=== PATIENT | female | born 1975 | race Caucasian/White ===

== ENCOUNTER 2017-08-03 08:25 | Observation (INO) | payer OTHER ==
[~2017-08-03] VITALS: Ht 162.6 cm; Wt 100.0 kg
[~2017-08-03 08:25] MED LIST: SYNT175T PO
[2017-08-03 08:26] VITALS: BP 147/85; PULSE 99; RESP 18; O2SAT 98
--- NOTE | 2017-08-03 08:34 | PD ---
HPI Chief Complaint: Chest Pain Time Seen by Provider: 08:33 Travel History International Travel<30 days: No Contact w/Intl Traveler<30days: No Traveled to known affect area: No History of Present Illness HPI 42-year-old female came to the emergency room with history of chest pain that has been on and off since yesterday. It has been radiating down her left arm. This morning when she woke up she still had some pain in her left arm but she went to work. On her way to work she started getting the pain again and decided to come to the emergency room. Patient seems very anxious and crying currently. Vital signs are stable. She has never had this kind of pain in the past. No aggravating or relieving factors identified. Patient has hypothyroidism and hyperlipidemia for which she is taking medications. She is adopted and does not know of a family history. No recent long distance travel or prolonged hospitalization or any other form of prolonged immobilization. No history of fever or cough. She is a smoker. [facility] Past Medical History Narrative Medical List of her past medical, surgical, social and family history is reviewed from the nursing note. Hx Anticoagulant Therapy: Yes (ASPIRIN 162 MG DAILY) Cardiovascular Problems: No Chemotherapy: No Cerebrovascular Accident: No Diabetes: No Respiratory: No Immunizations Current: Yes Thyroid Disease: Yes Past Surgical History Oral Surgery: Yes Social History Alcohol Use: No Tobacco Use: Yes Substance Use: No Allergies-Medications (Allergen,Severity, Reaction): Coded Allergies: codeine (Unverified Allergy, Mild, HIVES, 08/03/17) Uncoded Allergies: PPD TEST (Adverse Reaction, Mild, SWELLING OF ARM, 02/16/15) Comments List of her allergies reviewed from the nursing note. Reported Meds & Prescriptions Reported Meds & Active Scripts Active Zithromax Z-Bi (Azithromycin) 250 Mg Dspk 250 Mg PO DIRECTED 500 MG (2 tabs) day 1, then 1 tab days 2-5. Reported Aspirin 81 Mg Chew 162 Mg CHEW ONCE Lovastatin 10 Mg Tab 10 Mg PO DAILY Synthroid (Levothyroxine Sodium) 25 Mcg Tab 25 Mcg PO DAILY Narrative Medication List of her home medications reviewed from the nursing note. Review of Systems Except as stated in HPI: all other systems reviewed are Neg Cardiovascular: Positive: Chest Pain or Discomfort Physical Exam Narrative GENERAL: Awake, alert, obese, anxious, moderate distress SKIN: Focused skin assessment warm/dry. HEAD: Atraumatic. Normocephalic. EYES: Pupils equal and round. No scleral icterus. No injection or drainage. ENT: No nasal bleeding or discharge. Mucous membranes pink and moist. NECK: Trachea midline. No JVD. CARDIOVASCULAR: Regular rate and rhythm. No murmur appreciated. RESPIRATORY: No accessory muscle use. Clear to auscultation. Breath sounds equal bilaterally. GASTROINTESTINAL: Abdomen soft, non-tender, nondistended. Hepatic and splenic margins not palpable. MUSCULOSKELETAL: No obvious deformities. No clubbing. No cyanosis. No edema. NEUROLOGICAL: Awake and alert. No obvious cranial nerve deficits. Motor grossly within normal limits. Normal speech. PSYCHIATRIC: Appropriate mood and affect; insight and judgment normal. Data Data Last Documented VS Orders Orders Electrocardiogram (08/03/17 08:34) Basic Metabolic Panel (Bmp) (08/03/17 08:34) Complete Blood Count With Diff (08/03/17 08:34) Magnesium (Mg) (08/03/17 08:34) Act Partial Throm Time (Ptt) (08/03/17 08:34) Troponin I (08/03/17 08:34) Chest, Single Ap (08/03/17 08:34) Ecg Monitoring (08/03/17 08:34) Bilateral Bp Monitoring (08/03/17 08:34) Iv Access Insert/Monitor (08/03/17 08:34) Oximetry (08/03/17 08:34) Oxygen Administration (08/03/17 08:34) Sodium Chloride 0.9% Flush (Ns Flush) (08/03/17 08:45) Aspirin Chew (Aspirin Chew) (08/03/17 08:45) Nitroglycerin Sl (Nitrostat Sl) (08/03/17 08:45) Admit Order (Ed Use Only) (08/03/17 09:34) Labs Laboratory Tests Test 08/03/17 08:30 White Blood Count 9.5 TH/MM3 Red Blood Count 5.66 MIL/MM3 Hemoglobin 17.3 GM/DL Hematocrit 49.0 % Mean Corpuscular Volume 86.6 FL Mean Corpuscular Hemoglobin 30.6 PG Mean Corpuscular Hemoglobin Concent 35.3 % Red Cell Distribution Width 14.8 % Platelet Count 352 TH/MM3 Mean Platelet Volume 7.6 FL Neutrophils (%) (Auto) 68.0 % Lymphocytes (%) (Auto) 22.0 % Monocytes (%) (Auto) 7.3 % Eosinophils (%) (Auto) 2.1 % Basophils (%) (Auto) 0.6 % Neutrophils # (Auto) 6.5 TH/MM3 Lymphocytes # (Auto) 2.1 TH/MM3 Monocytes # (Auto) 0.7 TH/MM3 Eosinophils # (Auto) 0.2 TH/MM3 Basophils # (Auto) 0.1 TH/MM3 CBC Comment DIFF FINAL Differential Comment Activated Partial Thromboplast Time 25.7 SEC Blood Urea Nitrogen 11 MG/DL Creatinine 0.72 MG/DL Random Glucose 110 MG/DL Calcium Level 9.1 MG/DL Magnesium Level 2.4 MG/DL Sodium Level 141 MEQ/L Potassium Level 4.2 MEQ/L Chloride Level 108 MEQ/L Carbon Dioxide Level 25.5 MEQ/L Anion Gap 8 MEQ/L Estimat Glomerular Filtration Rate 88 ML/MIN Troponin I LESS THAN 0.02 NG/ML MDM Medical Decision Making Medical Screen Exam Complete: Yes Emergency Medical Condition: Yes Medical Record Reviewed: Yes Interpretation(s) Twelve-lead EKG was reviewed by me. Normal sinus rhythm, normal axis, nonspecific ST-T wave changes. Heart rate of 100 bpm. Differential Diagnosis ACS, non-STEMI, atypical chest pain Narrative Course 9:32 AM blood test results are back and within acceptable limits. Patient was given 2 baby aspirins and a sublingual nitroglycerin. I would like to admit the patient to the chest pain center to be ruled out. Chest x-ray was read by the radiologist as a left base infiltrate. Patient has no history of cough, fever or any respiratory issues. White count is within normal limits. Patient will be given a prescription for Zithromax so that she can fill it and take it after she is discharged. Procedures EKG Prior to Arrival: No Diagnosis Primary Impression: Chest pain Qualified Codes: R07.9 - Chest pain, unspecified Med/Other Pt SpecificInfo: Prescription(s) given Scripts Azithromycin (Zithromax Z-Bi) 250 Mg Dspk 250 MG PO DIRECTED for Infection, #1 DSPK 0 Refills 500 MG (2 tabs) day 1, then 1 tab days 2-5. Prov: Kenneth Villarreal MD 08/03/17 Disposition: 01 DISCHARGE HOME Condition: Stable Kenneth Villarreal MD Aug 03, 2017 08:34
[2017-08-03] MEDS ORDERED: LOVA10TA PO (08:38)
[2017-08-03] MEDS ORDERED: ASPI-516 CHEW (08:38)
[2017-08-03] MEDS ORDERED: SYNT25TA PO (08:38)
[2017-08-03 08:40] VITALS: BP_SYST 146; BP_SYST 147; BP_DIAS 69; BP_DIAS 85; PULSE 79; PULSE 87; RESP 16; O2SAT 98
[2017-08-03] MEDS ORDERED: SODIUM CHLORIDE 0.9% FLUSH 10 ML FLUSH IVF PRN (08:45)
[2017-08-03] MEDS ORDERED: NITROGLYCERIN 0.4 MG SL 25 TABS/BTL SL ONE (08:45)
[2017-08-03] MEDS ORDERED: ASPIRIN 81 MG CHEW TAB CHEW ONE (08:45)
[2017-08-03 08:57] LABS: AUTOMATED NEUTROPHIL # 6.5 TH/MM3 (1.8-7.7); BASOPHIL # 0.1 TH/MM3 (0-0.2); BASOPHIL % 0.6 % (0.0-2.0); EOSINOPHIL # 0.2 TH/MM3 (0-0.4); EOSINOPHIL % 2.1 % (0.0-4.0); HEMOGLOBIN 17.3 GM/DL (11.6-15.3); LYMPHOCYTE # 2.1 TH/MM3 (1.0-4.8); MEAN CELL VOLUME 86.6 FL (80.0-100.0); MEAN CORPUSCULAR HEMOGLOBIN 30.6 PG (27.0-34.0); MEAN CORPUSCULAR HGB CONC 35.3 % (32.0-36.0); MEAN PLATELET VOLUME 7.6 FL (7.0-11.0); MONO % 7.3 % (0.0-8.0); MONOCYTE # 0.7 TH/MM3 (0-0.9); PLATELET COUNT 352 TH/MM3 (150-450); RED BLOOD COUNT 5.66 MIL/MM3 (4.00-5.30); RED CELL DISTRIBUTION WIDTH 14.8 % (11.6-17.2); WHITE BLOOD COUNT 9.5 TH/MM3 (4.0-11.0)
--- NOTE | 2017-08-03 09:13 | RADRPT ---
EXAM DATE/TIME: 08/03/2017 08:50 [facility] COMPARISON: No previous studies available for comparison. INDICATIONS : Chest pain since yesterday. MEDICAL HISTORY : Hypothyroidism. Graves disease. SURGICAL HISTORY : None. ENCOUNTER: Initial ACUITY: 2 days PAIN SCORE: 8/10 LOCATION: Bilateral chest FINDINGS: Mild infiltrates in the left lung base. No significant effusion. Cardiac contours are satisfactory fo r technique and projection. CONCLUSION: Mild left base infiltrate. Dwight Martinez MD on August 03, 2017 at 9:10 Board Certified Radiologist. This report was verified electronically.
[2017-08-03 09:22] LABS: BICARBONATE 25.5 MEQ/L (21.0-32.0); BLOOD UREA NITROGEN 11 MG/DL (7-18); CALCIUM 9.1 MG/DL (8.5-10.1); CHLORIDE 108 MEQ/L (98-107); CREATININE 0.72 MG/DL (0.50-1.00); GLOMERULAR FILTRATION RATE 88 ML/MIN (>89); GLUCOSE,RANDOM 110 MG/DL (74-106); MAGNESIUM 2.4 MG/DL (1.5-2.5); SODIUM (NA) 141 MEQ/L (136-145)
[2017-08-03 09:25] LABS: TROPONIN I LESS THAN 0.02 NG/ML (0.02-0.05)
[2017-08-03] MEDS ORDERED: ZITHTAB PO (09:34)
[2017-08-03] MEDS ORDERED: ACETAMINOPHEN 325 MG TAB PO ONE (09:45)
[2017-08-03] MEDS ORDERED: ALPRAZolam 0.25 MG TAB PO PRN (10:00)
[2017-08-03] MEDS ORDERED: ALUMINUM/MAGNESIUM/SIMETH 30 ML CUP PO ONE (10:00)
[2017-08-03] MEDS ORDERED: PANTOPRAZOLE SOD 40 MG DELAYED RELEASE TAB PO SCH (10:00)
[2017-08-03] MEDS ORDERED: ATROPINE/SCOPOLAM/HYOSCYAM/PB ELIXIR 10 ML CUP PO ONE (10:00)
[2017-08-03] MEDS ORDERED: ONDANSETRON HCL 4 MG/2 ML VIAL IV PUSH PRN (10:00)
[2017-08-03] MEDS ORDERED: LIDOCAINE VISCOUS 2% SOLN 15 ML UDC PO ONE (10:00)
[2017-08-03] MEDS ORDERED: ACETAMINOPHEN 500 MG CPLT PO PRN (10:00)
--- NOTE | 2017-08-03 10:15 | HHI.HP ---
[facility] Primary Care Physician Mike Maxwell MD (Paul) Chief Complaint Chest pain History of Present Illness This is a 42-year-old female with history of hyperlipidemia, hypothyroidism, GERD, and tobacco abuse that presents to ED via private vehicle with a coworker with a complaint of intermittent chest discomfort. Patient states that yesterday around noon she developed a dull burning sensation in the center of her chest. States symptoms resolved after about an hour. She states she was belching a lot. Didn't think much about it, stated that she thought was just her typical heartburn. Then today around 8:00 this morning while going to work she developed a similar discomfort however she also had a sharp discomfort in the back of her left arm with the discomfort in the chest. It will last 5-10 minutes and recurred several times. She also found her blood pressure was elevated at work at 160/96 and 178/96. Denied shortness of breath, nausea, or diaphoresis. Denies recent illness. Denies fevers or chills. She has not been coughing. Denies recent travel. Denies prior cardiac workup. Review of Systems General: Patient denies fevers, chills recent, and recent travel HEENT: Patient denies headache, sore throat, difficulty swallowing. Cardiovascular: Has the chest discomfort as mentioned above. Denies sensation of heart beating rapidly or irregularly. No syncope. Denies diaphoresis. Respiratory: Denies shortness of breath or inspirational chest discomfort. Denies coughing wheezing or hemoptysis. GI: Patient denies nausea, vomiting, diarrhea, abdominal pain, bloody stools. Musculoskeletal: Patient denies joint pain or edema. Denies calf pain or edema. Neurovascular: Patient denies numbness, tingling, weakness in extremities. Denies headache. Endocrine: Denies polyuria and polydipsia. Hematologic: Denies easy bruising. Skin: Denies rash or itching. Past Family Social History Allergies: Coded Allergies: codeine (Unverified Allergy, Mild, HIVES, 08/03/17) Uncoded Allergies: PPD TEST (Adverse Reaction, Mild, SWELLING OF ARM, 02/16/15) Past Medical History Edema, hypothyroidism, GERD, tobacco abuse. Denies hypertension, diabetes, and known CAD. Past Surgical History Noncontributory. Reported Medications Reported Meds & Active Scripts Active Zithromax Z-Bi (Azithromycin) 250 Mg Dspk 250 Mg PO DIRECTED 500 MG (2 tabs) day 1, then 1 tab days 2-5. Reported Aspirin 81 Mg Chew 162 Mg CHEW ONCE Lovastatin 10 Mg Tab 10 Mg PO DAILY Synthroid (Levothyroxine Sodium) 25 Mcg Tab 25 Mcg PO DAILY Active Ordered Medications Current Medications Medications (Trade) Dose Ordered Sig/Tomasa Route Start Time Stop Time Status Last Admin (NS Flush) 2 ml UNSCH PRN IVF 08/03/17 08:45 (Xylocaine 2% Viscous) 10 ml STAT ONCE PO 08/03/17 10:00 08/03/17 10:01 UNV ( Liq) 10 ml NOW ONCE PO 08/03/17 10:00 08/03/17 10:01 UNV (Mag-Al Plus Susp Liq) 30 ml STAT ONCE PO 08/03/17 10:00 08/03/17 10:01 UNV (Tylenol) 500 mg Q4H PRN PO 08/03/17 10:00 UNV (Zofran Inj) 4 mg Q6H PRN IV PUSH 08/03/17 10:00 UNV (Protonix) 40 mg DAILY PO 08/03/17 10:00 UNV (Aspirin) 325 mg DAILY PO 08/04/17 09:00 UNV (Xanax) 0.25 mg Q8H PRN PO 08/03/17 10:00 UNV Family History States she is unaware her family medical history. States she is adopted. Social History Smokes one pack of cigars daily 28 years. Denies alcohol. Denies illicit drugs. 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 Patient also drinks about 12 sodas per day. Physical Exam Vital Signs Vital Signs Date Time Temp Pulse Resp B/P (MAP) Pulse Ox O2 Delivery O2 Flow Rate FiO2 08/03/17 08:40 79 16 08/03/17 08:40 98 Nasal Cannula 2.00 08/03/17 08:40 87 16 147/85 (105) 98 Nasal Cannula 2.00 146/69 (94) 08/03/17 08:31 96 18 99 Nasal Cannula 2.00 08/03/17 08:26 99 18 147/85 (105) 98 Physical Exam GENERAL: This is a well-nourished, well-developed patient, in no apparent distress. Patient speaks in clear complete sentences. Patient is pleasant. HEENT: Head is atraumatic and normocephalic. Neck is supple without lymphadenopathy and trachea is midline. No JVD or carotid bruits. CARDIOVASCULAR: Regular rate and rhythm without murmurs, gallops, or rubs. RESPIRATORY: Clear to auscultation. Breath sounds equal bilaterally. No wheezes , rales, or rhonchi. Chest wall is tender along the inferior aspect of the sternum. No use of accessory muscles. GASTROINTESTINAL: Abdomen is nontender, nondistended. Abdomen soft. No obvious pulsatile mass or bruit. No CVA tenderness. Strong femoral pulses bilaterally. Normal bowel sounds in all quadrants. MUSCULOSKELETAL: Patient is moving upper and lower extremities freely. No calf tenderness or edema, no Homans sign. Strong pulses in upper and lower extremities. NEUROLOGICAL: Patient is alert and oriented. Cranial nerves 2-12 are grossly intact. No focal deficits and speech is clear. SKIN: No rash and turgor is normal. Laboratory Laboratory Tests Test 08/03/17 08:30 White Blood Count 9.5 Red Blood Count 5.66 Hemoglobin 17.3 Hematocrit 49.0 Mean Corpuscular Volume 86.6 Mean Corpuscular Hemoglobin 30.6 Mean Corpuscular Hemoglobin Concent 35.3 Red Cell Distribution Width 14.8 Platelet Count 352 Mean Platelet Volume 7.6 Neutrophils (%) (Auto) 68.0 Lymphocytes (%) (Auto) 22.0 Monocytes (%) (Auto) 7.3 Eosinophils (%) (Auto) 2.1 Basophils (%) (Auto) 0.6 Neutrophils # (Auto) 6.5 Lymphocytes # (Auto) 2.1 Monocytes # (Auto) 0.7 Eosinophils # (Auto) 0.2 Basophils # (Auto) 0.1 CBC Comment DIFF FINAL Differential Comment Activated Partial Thromboplast Time 25.7 Blood Urea Nitrogen 11 Creatinine 0.72 Random Glucose 110 Calcium Level 9.1 Magnesium Level 2.4 Sodium Level 141 Potassium Level 4.2 Chloride Level 108 Carbon Dioxide Level 25.5 Anion Gap 8 Estimat Glomerular Filtration Rate 88 Troponin I LESS THAN 0.02 Result Diagram: 08/03/17 0830 08/03/17 0830 Imaging Last 48 hours Impressions Chest X-Ray 08/03/17 0834 Signed Impressions: Service Date/Time: Thursday, August 03, 2017 08:50 - CONCLUSION: Mild left base infiltrate. Dwight Martinez MD Course EKGs: Initial EKG has sinus rhythm without significant ST segment depressions or elevations. Caprini VTE Risk Assessment Caprini VTE Risk Assessment: No/Low Risk (score <= 1) Caprini Risk Assessment Model Point Value = 1 Point Value = 2 Point Value = 3 Point Value = 5 Age 41-60 Minor surgery BMI > 25 kg/m2 Swollen legs Varicose veins or History of unexplained or recurrent spontaneous Oral contraceptives or hormone replacement Sepsis (< 1 month) Serious lung disease, including pneumonia (< 1 month) Abnormal pulmonary function Acute myocardial infarction Congestive heart failure (< 1 month) History of inflammatory bowel disease Medical patient at bed rest Age 61-74 Arthroscopic surgery Major open surgery (> 45 min) Laparoscopic surgery (> 45 min) Malignancy Confined to bed (> 72 hours) Immobilizing plaster cast Central venous access Age >= 75 History of VTE Family history of VTE Factor V Leiden Prothrombin [id number] Lupus anticoagulant Anticardiolipin antibodies Elevated serum homocysteine Heparin-induced thrombocytopenia Other congenital or acquired thrombophilia Stroke (< 1 month) Elective arthroplasty Hip, pelvis, or leg fracture Acute spinal cord injury (< 1 month) Prophylaxis Regimen Total Risk Factor Score Risk Level Prophylaxis Regimen 0-1 Low Early ambulation 2 Moderate Order ONE of the following: *Sequential Compression Device (SCD) *Heparin 5000 units SQ BID 3-4 Higher Order ONE of the following medications: *Heparin 5000 units SQ TID *Enoxaparin/Lovenox 40 mg SQ daily (WT < 150 kg, CrCl > 30 mL/min) *Enoxaparin/Lovenox 30 mg SQ daily (WT < 150 kg, CrCl > 10-29 mL/min) *Enoxaparin/Lovenox 30 mg SQ BID (WT < 150 kg, CrCl > 30 mL/min) AND/OR *Sequential Compression Device (SCD) 5 or more Highest Order ONE of the following medications: *Heparin 5000 units SQ TID (Preferred with Epidurals) *Enoxaparin/Lovenox 40 mg SQ daily (WT < 150 kg, CrCl > 30 mL/min) *Enoxaparin/Lovenox 30 mg SQ daily (WT < 150 kg, CrCl > 10-29 mL/min) *Enoxaparin/Lovenox 30 mg SQ BID (WT < 150 kg, CrCl > 30 mL/min) AND *Sequential Compression Device (SCD) Assessment and Plan Assessment and Plan * Chest pain: Patient will continue to have serial cardiac enzymes and EKGs for ruling out purposes. She will be seen by Dr. Valverde cardiology in the chest pain center. Chest x-ray revealed infiltrate left lung base however patient denies any type of pneumonia symptoms. The ER physician has prescribed azithromycin. We will get a PA and lateral chest x-ray to check and see if infiltrate is still present and she does not appear to have a pneumonia. If she rules out, patient with and have a stress test. She'll be discharged home if stress test was nonischemic with instructions to follow-up with PCP. We will also give a GI cocktail as patient states a lot of her symptoms are similar to her typical GERD. * Hyperlipidemia: Continue current medication. * Hypothyroidism: Continue current medication. * GERD: We'll give GI cocktail and Protonix. * Tobacco abuse: Patient has been counseled on the importance of smoking cessation. Patient is stable at this time. She is agreeable to this plan. Damion Phillips Aug 03, 2017 10:15
--- NOTE | 2017-08-03 10:58 | RADRPT ---
EXAM DATE/TIME: 08/03/2017 10:43 [facility] COMPARISON: No previous studies available for comparison. INDICATIONS : Chest pain. MEDICAL HISTORY : Graves disease. SURGICAL HISTORY : None. ENCOUNTER: Initial ACUITY: 1 day PAIN SCORE: 0/10 LOCATION: Left chest FINDINGS: PA and lateral views of the chest demonstrate the lungs to be symmetrically aerated without evidence of mass, infiltrate or effusion. The cardiomediastinal contours are unremarkable. Osseous structure s are intact. CONCLUSION: 1. No acute cardiopulmonary disease. Sundeep Conti MD on August 03, 2017 at 10:54 Board Certified Radiologist. This report was verified electronically.
[2017-08-03 11:30] VITALS: PULSE 72
[2017-08-03 11:46] VITALS: BP 126/58; PULSE 73; RESP 18; TEMP 98.6; O2SAT 97
--- NOTE | 2017-08-03 12:57 | EKG ---
Date Performed: 08/03/2017 Time Performed: 08:29:08 PTAGE: 42 years EKG: SINUS TACHYCARDIA POSSIBLE LEFT ATRIAL ENLARGEMENT MINIMAL ST DEPRESSION ABNORMAL RHYTHM EC G Since PREVIOUS TRACING , no significant change noted PREVIOUS TRACIN02/16/2015 03.08 DOCTOR: Grace Valverde Interpretating Date/Time 08/03/2017 12:55:54
[2017-08-03 13:23] LABS: TROPONIN I 0.12 NG/ML (0.02-0.05)
[2017-08-03] MEDS ORDERED: SODIUM CHLOR 0.9% 1000 ML INJ 1,000 ML IV SCH ×2 (13:51→14:33)
[2017-08-03] MEDS ORDERED: NITROGLYCERIN 2% OINT 1 GM PACKET TOPICAL SCH (14:00)
[2017-08-03] MEDS ORDERED: DIAZEPAM 10 MG TAB PO SCH (14:45)
[2017-08-03] MEDS ORDERED: diphenhydrAMINE HCL 50 MG CAP PO SCH (14:45)
[2017-08-03] MEDS ORDERED: MIDAZOLAM HCL 2 MG/2 ML VIAL IV PUSH SCH (14:45)
[2017-08-03] MEDS ORDERED: METOPROLOL TARTRATE 25 MG TAB PO SCH (15:00)
[2017-08-03 15:34] LABS: TROPONIN I 0.2 NG/ML (0.02-0.05)
[2017-08-03] MEDS ORDERED: NITROGLYCERIN INJ 5 ML ONE (15:42)
[2017-08-03] MEDS ORDERED: VERAPAMIL HCL 5 MG/2 ML VIAL ONE (15:42)
[2017-08-03] MEDS ORDERED: MIDAZOLAM HCL 2 MG/2 ML VIAL ONE (15:42)
[2017-08-03] MEDS ORDERED: HEPARIN SODIUM - IV 10,000 UNITS/10 ML VIAL ONE (15:42)
[2017-08-03] MEDS ORDERED: HEPARIN-NS/PF FLUSH BAG 1,000 ML IV FLUSH ONE (15:42)
--- NOTE | 2017-08-03 15:45 | MB ---
cc: SHELTON TELLES M.D. DATE OF CONSULTATION: 08/03/2017 REASON FOR CONSULTATION: Unstable angina. HISTORY OF PRESENT ILLNESS The patient is a 42-year-old white female with a history of hyperlipidemia, tobacco abuse, who was in her usual state of health up until yesterday afternoon when she began to experience moderate substernal chest "burning." The episode lasted about an hour and was not associated with shortness of shortness of breath, nausea or diaphoresis. This morning while going to work she once again developed the same chest discomfort, this time with associated left upper arm pain. The chest discomfort resolved after about 10 minutes but recurred a number of times over the next two hours. Once again there was no associated shortness of breath, nausea, or diaphoresis. The patient denies pleurisy, dizziness, syncope, near-syncope, palpitations, pedal edema, paroxysmal nocturnal dyspnea. PAST MEDICAL HISTORY Hyperlipidemia, hypothyroidism. CARDIAC MEDICATIONS AT HOME: Lovastatin 10 mg daily. ALLERGIES Codeine. FAMILY HISTORY: Unknown. The patient is adopted. SOCIAL HISTORY: The patient smokes about a pack of cigarettes a day. She denies drugs or alcohol abuse. REVIEW OF SYSTEMS: As in the history of present illness, otherwise negative or noncontributory. She also denies headache, abdominal pain, melena, bright red blood per rectum, fevers, wheezing. PHYSICAL EXAMINATION: On physical examination her blood pressure is 126/58 with a pulse of 70, respirations 18. GENERAL: She is a well-developed, well-nourished white female in no acute distress. HEENT examination: Jugular venous pressure is normal. Carotid pulses are 2+ bilaterally and without bruits. CHEST: Examination of the chest reveals clear lung brothers. CARDIAC: On cardiac examination she has a regular rhythm and rate without S3-S4 or murmur. ABDOMEN: On abdominal examination she has a soft, nontender abdomen. Bowel sounds are present. There is no definite hepatosplenomegaly. EXTREMITIES: Examination of the extremities reveals no clubbing, cyanosis or edema. Peripheral pulses are normal throughout. EKG shows sinus tachycardia, nonspecific ST abnormality. LABORATORY DATA: Laboratory data includes WBC 9.5, hemoglobin 17.3, platelets 352, potassium 4.2, BUN 11, creatinine 0.72, CK 52, troponin 0.12. Chest x-ray shows mild left basilar infiltrate. IMPRESSION Symptoms most suggestive of unstable angina in this 42-year-old white female with a history of tobacco abuse, hyperlipidemia. Her symptoms over the past two days are most suggestive of angina, at rest. She has also had stuttering chest pain today. EKG shows nonspecific, though dynamic ST-segment changes. She does have risk factors for coronary disease and her troponin level is slightly abnormal. Overall, given the instability of her symptoms, I have recommended she undergo cardiac catheterization with possible percutaneous coronary intervention. The nature of these procedures and potential risks including but not limited to , myocardial infarction, stroke, arrhythmia, bleeding, infection, renal failure have been outlined to the patient. She agrees to proceed. RECOMMENDATIONS 1. Cardiac catheterization today. 2. Continue nitrates, beta humza and aspirin therapy. MD CANDE Burt/LEEANNA /2:29 PM /3:17 PM JAYDEN
[2017-08-03] MEDS ORDERED: SODIUM CHLORIDE 0.9% FLUSH 10 ML FLUSH IV FLUSH PRN (16:30)
[2017-08-03] MEDS ORDERED: MISC INFORMATION XX ONE (16:30)
--- NOTE | 2017-08-03 16:41 | CATHPROC ---
[employer] HIS Report Study Information Study Number Admission Scheduled Start Study Start [id number] Aug 03 2017 9:36AM 08/03/2017 Aug 03 2017 3:32PM [place] [facility] Cardiac Catheterization Admit Source Facility Department Emergency department [facility] - [facility] Physician and Clinical Staff Initial Pepe Thomas Trestlemanluzmaria Ivy RN, Padimni Ricks,HUGH TECH2 Recorder Elizabeth Rodriguez ,RT(R) ScrCherelle Pastrana,RT(R) Procedures Performed Procedure Location (Site) Vessel Name Coronary Angiograms LCA Left Coronary Coronary Angiograms RCA Right Coronary LV Gram-hand inj. LV LV Ventricle Equipment Time Director Software Description Size Mfg Part Number Used/Scraped TRANSDUCER, TRUWAVE [id number] 15:44 CONSTANTINO ARITA * Used W/STOCKCOCK *[id number] [id number] *[id number] *[id number] 15:44 MALLINCKRODT SYRINGE, ANGIOMAT 150ML 150ML *[id number] Used [facility] Blowtorch CONCEPT DRAPE, RADIAL FEMORAL FULL 15:44 * [id number] *[id number] Used DEVELOPMENT BODY [id number] 15:44 Kwelia PACK, CCL CUSTOM * Used *[id number] 15:44 Kwelia SUPPORT, ARTERIAL ADULT 95359 *[id number] Used [id number] 15:44 Nitrous.IO PACER PEN, SKIN DUAL W/ RULER * Used *[id number] 16:05 MEDTRONIC JL 3.5 DXTERITY CATHETER FR 5 Used *[id number] BAND, RADIAL COMPRESSION TR [id number] 16:14 [employer] MEDICAL 24CM Used SHORT 24 *[id number] SHEATH, FR6 RADIAL PRELUDE 15:44 [employer] FR 6 [id number] Used EASE 11CM [id number] 15:44 [employer] WIRE, EXCHANGE 260CM 3MMJ 260CM Used *[id number] 15:44 NAMIC MANIFOLD, 4 PORT * Used *[id number] 15:44 NYCOMED OMNIPAQUE, 350 MG, 150ML 150ML [id number] Used [id number] 15:44 [employer] BLANKET,WARM AIR CCL * Used *[id number] CATHETER, FR5 OPTITORQUE [id number] 15:52 TERUMO [employer]ICAL FR 5 Used RADIAL TIG 4.0 *[id number] History: Risk Factors Family History of Hypertension Dyslipidemia Previous PA Previous Heart Failure Premature CAD No Yes No No No Prior Valve Prior PCI Prior CABG Surgery No No No Cerebrovascular Peripheral Artery Chronic Lung On Dialysis Diabetes Disease Disease Disease No No No No No History: Stress Tests Stress or Imaging Studies Performed No Labs Hgb (g/dl) Hct (%) RBC (MIL/MM3) WBC (l/cumm) Platelets (thousands) 11.60-17.00 35.00-51.00 4.00-5.90 4.00-11.00 150.00-450.00 17.3 49 5.6 9.5 352 Glucose (mg/dl) BUN (mg/dl) Creatinine (mg/dl) BUN:Creatinine (1:x) 74.00-106.00 7.00-18.00 0.50-1.30 10.00-20.00 110 11 0.7 15.7 Na (meq/l) K (meq/l) 136.00-145.00 3.50-5.10 141 4.2 Troponin I (ng/ml) CPK (u/l) CPK-MB (ng/ML) 0.02-0.05 26.00-308.00 0.50-3.60 0.12 52 Not Drawn Medication Medication Total Dose (Bolus/Oral) Medication Total Dosage/Unit 1% XYLOCAINE 10 mL FENTANYL 50 mcg NTG (IC) 200 mcg RADIAL COCKTAIL 5 mL (Bolus) VERSED 2 mg Medications (Bolus/Oral) Medication Time Given Dosage/Unit Administered By Reason VERSED 08/03/2017 3:55:15 PM 2 mg Jeramy Ivy RN 2 mg VERSED given in lab by Jeramy Ivy RN in Right Antecubital via Peripheral IV. Ordered by Pepe Morales. 1% XYLOCAINE 08/03/2017 3:57:35 PM 10 mL Pepe Morales 10 mL 1% XYLOCAINE given in lab by Pepe Morales in Right Radial via Subcutaneous. Ordered by Efe Morales. Ntg 200mcg Verapamil 2.5mg Heparin RADIAL COCKTAIL 08/03/2017 4:00:19 PM 5 mL (Bolus) Pepe Morales 2500U 5 mL (Bolus) RADIAL COCKTAIL given in lab by Pepe Morales in Right Radial via Radial. Using [Solution Name]. Ordered by Pepe Morales. Reason: Ntg 200mcg Verapamil 2.5mg Heparin 2500U. NTG (IC) 08/03/2017 4:09:08 PM 100 mcg Pepe Morales 100 mcg NTG (IC) given in lab by Pepe Morales in Right Radial via Intra-coronary. Ordered by Efe Morales. NTG (IC) 08/03/2017 4:11:00 PM 100 mcg Pepe Morales 100 mcg NTG (IC) given in lab by Pepe Morales in Right Radial via Intra-coronary. Ordered by Efe Morales. FENTANYL 08/03/2017 4:29:10 PM 50 mcg Jeramy Ivy RN 50 mcg FENTANYL given in lab by Jeramy Ivy RN in Left Forearm via Peripheral IV. Ordered by Pepe Morales. Medication (Drip) Medication Time Given Dosage/Unit Concentration/Unit Diluent (ml) Solutio n IV Solutions 08/03/2017 3:38:55 PM 0 mL (IV) 500 NaCl .9 IV Solutions given in lab by Jeramy Ivy RN in Right Antecubital via Peripheral IV. Pump/Drip Flow = 20 ml/hr using NaCl .9. IV Solutions 08/03/2017 4:25:57 PM 0 mL (IV) 500 NaCl .9 IV Solutions given in lab by Jeramy Ivy RN in Left Forearm via Peripheral IV. Pump/Drip Flow = 20 m l/hr using NaCl .9. Ordered by Pepe Morales. IV fluids moved to LFA IV started by Karlos Ivy RN Initial Case Assessment Cardiovascular HR Rhythm NIBP Chest Pain 90 sr 143/73 0 Edema Present Skin color Skin None Normal Warm Dry Circulatory - Right Pulses Dorsalis Pedis Femoral Radial 1 1 2 Scale (0,1,2,3,4,d) Circulatory - Left Pulses Dorsalis Pedis Femoral Radial 1 Scale (0,1,2,3,4,d) Neurological State Oriented to time-place- Alert Moves all extremities person Respiration - General Respiration Rate SpO2 (%) (B/min) 19 95 Final Case Assessment Cardiovascular HR Rhythm NIBP Chest Pain 82 sr 139/71 0 Edema Present Skin color Skin None Normal Warm Dry Circulatory - Right Pulses Dorsalis Pedis Femoral Radial 1 1 2 Scale (0,1,2,3,4,d) Scale (0,1,2,3,4,d) Neurological State Oriented to time-place- Alert Moves all extremities person Respiration - General Respiration Rate SpO2 (%) (B/min) 11 93 Chronological Log Time Study Chronological Log 15:31:48 Patient arrived via Bed. 15:31:49 Patient Name, D.O.B, / Armband Verified By R.N. 15:38:36 Consent signed by the physician and the patient and verified by the [employer] staff. 15:38:38 Verbal Stimulation=2 Physical Stimulation=2 Airway=2 Respiration=2 TOTAL=8. (0=absent, 1=li mited, 2=present) 15:38:43 Allens test performed on the right radial and ulnar artery. positive 15:38:46 Patient has been NPO for Less than 6Hrs. 15:38:47 Skin Breakdown-none 15:38:50 Patient Warmer Placed on the Table. 15:38:52 Poli Prominences Protected 15:38:54 A # 20 IV was noted in the Antecubital (right). Grade = patent IV Solutions given in lab by Jeramy Ivy RN in Right Antecubital via Peripheral IV. Pump/Drip Flow = 20 ml/hr using 15:38:55 NaCl .9. 15:38:56 History and physical on the chart or being dictated. Assessment: Initial Case, HR=90 BPM, Rhythm=sr, OBTR=564/73 mmhg, Chest Pain=0, Edema=None, Col or=Normal, Skin = Warm, Dry Right Pulses: Luis Ped=1, Femoral=1, Radial=2 15:38:57 Left Pulses: Luis Ped=1 Neurological: State=Alert, Ox3, MURO Respiration: Resp=19 B/min, SpO2=95 % Vitals capture started with the following parameters, Patient=Adult, Interval=5 min, Initial Pr udivgq=069 mmHg, 15:39:04 Deflation Rate=5 mmHg, Cuff placed on Left Arm 15:39:46 HR=87 bpm, SCBQ=453/70 mmhg, SpO2=99.0 %, Resp=18 B/min, Pain=0, Jonah=6, Barros=2 15:42:11 Reference ECG taken 15:44:39 HR=90 bpm, QMNA=435/88 mmhg, SpO2=95.0 %, Resp=22 B/min 15:44:50 Right groin and right radial prepped with 2% chlorhexidine, and draped after a 3 min. waiti ng time. 15:49:23 Pressure channel 1 zeroed. 15:49:42 HR=86 bpm, NCBK=578/73 mmhg, SpO2=96.0 %, Resp=11 B/min 15:54:21 MD arrived. 15:54:43 HR=85 bpm, ZPOA=448/76 mmhg, SpO2=94.0 %, Resp=20 B/min, Pain=0, Jonah=6, Barros=2 15:55:15 2 mg VERSED given in lab by Jeramy Ivy RN in Right Antecubital via Peripheral IV. Ordered by Pepe Morales. Time Out. Correct patient, correct procedure, correct physician, power injector not loaded with contrast with surgical 15:57:00 team present. Time Out Concurred by MD and individual staff in procedure. 15:57:19 Case Start 15:57:35 10 mL 1% XYLOCAINE given in lab by Pepe Morales in Right Radial via Subcutaneous. Ordered b Pepe Gauthier. 15:59:44 HR=86 bpm, HGMD=637/79 mmhg, SpO2=92.0 %, Resp=7 B/min, Pain=0, Jonah=6, Barros=2 15:59:49 Access site was right Radial Artery. A SHEATH, FR6 RADIAL PRELUDE EASE 11CM FR 6 was advanced into the Radial (right) using the Perc utaneous 16:00:03 technique. 5 mL (Bolus) RADIAL COCKTAIL given in lab by Pepe Morales in Right Radial via Radial. Using [So lution Name]. Ordered 16:00:19 by Pepe Morales. Reason: Ntg 200mcg Verapamil 2.5mg Heparin 2500U. A CATHETER, FR5 OPTITORQUE RADIAL TIG 4.0 FR 5 was advanced over a wire. OMNIPAQUE, 350 MG, 150 ML 150ML 16:00:46 was used for injections. 16:01:53 The RCA was injected and visualized at various angles. OMNIPAQUE, 350 MG, 150ML 150ML used . Recorded Pressure: Ao, HR=92, Condition=Condition 1 16:02:02 (Aorta) Ao 132/78/102 After removing the current catheter a JL 3.5 DXTERITY CATHETER FR 5 was advanced over a WIRE, E XCHANGE 260CM 16:03:58 3MMJ 260CM. 16:04:45 HR=92 bpm, YOWF=503/72 mmhg, SpO2=91.0 %, Resp=25 B/min, Pain=0, Jonah=6, Barros=2 16:05:53 The LCA was injected and visualized at various angles. OMNIPAQUE, 350 MG, 150ML 150ML used . 16:09:08 100 mcg NTG (IC) given in lab by Pepe Morales in Right Radial via Intra-coronary. Ordered b y Pepe Morales. 16:10:19 HR=83 bpm, XDZO=177/70 mmhg, SpO2=90.0 %, Resp=34 B/min A MPA-2 INFINITI CATHETER FR 4 was advanced over a wire. OMNIPAQUE, 350 MG, 150ML 150ML was use d for 16:10:53 injections. 16:11:00 100 mcg NTG (IC) given in lab by Pepe Morales in Right Radial via Intra-coronary. Ordered b y Pepe Morales. Recorded Pressure: LV, YG=901, Condition=Condition 1 16:12:45 (Left Ventricle) LV 159/10/13 16:12:55 The LV was manually injected with 10 cc's and visualized. OMNIPAQUE, 350 MG, 150ML 150ML us ed. Recorded Pressure: LV, Ao, HR=84, Condition=Condition 1 16:13:02 (Left Ventricle) LV 141/13/23, (Aorta) Ao 140/79/106 16:14:45 HR=79 bpm, DHVW=660/71 mmhg, SpO2=93.0 %, Resp=19 B/min, Pain=0, Jonah=6, Barros=2 16:14:58 Catheter was removed 16:15:02 Case End Assessment: Final Case, HR=82 BPM, Rhythm=sr, EPNA=235/71 mmhg, Chest Pain=0, Edema=None, Color =Normal, Skin = Warm, Dry 16:15:13 Right Pulses: Luis Ped=1, Femoral=1, Radial=2 Neurological: State=Alert, Ox3, MURO Respiration: Resp=11 B/min, SpO2=93 % 16:15:20 Catheter(s) removed without difficulty Radial Compression Device Used. 11 mLs of air placed in BAND, RADIAL COMPRESSION TR SHORT 24 24 CM. Affected 16:15:23 hand 93 % O2 saturation. 16:15:26 No case complications noted. 16:15:27 Cine recording checked. 16:15:28 Bedside Report will be given. 16:15:35 Contrast Scanned 16:19:44 HR=88 bpm, BLXS=393/75 mmhg, SpO2=89.0 %, Resp=6 B/min 16:25:42 A # 22 IV was started in the Forearm (left). Grade = patent IV Solutions given in lab by Jeramy Ivy RN in Left Forearm via Peripheral IV. Pump/Drip Flow = 20 ml/hr using NaCl .9. 16:25:57 Ordered by Pepe Morales. IV fluids moved to LFA IV started by Karlos Ivy RN 16:29:10 50 mcg FENTANYL given in lab by Jeramy Ivy RN in Left Forearm via Peripheral IV. Ordered by Pepe Morales. 16:30:11 Patient moved to bed 16:33:26 Patient transported to DOCU. End Study - Contrast Media Used In Study Contrast Total Opened (mL) Total Used (mL) Total Wasted (mL) Omnipaque 40 40 0 End Study - Maximum Contrast Load Max Contrast Load (mL) 714.3 End Study - Radiation Exposure Fluoro Time (minutes) 5.7 End Study - Sheaths Sheaths Pulled By Sheath Hold Time (min) Cherelle Harden End Study - Patient Disposition Complications Transferred To Interventional Outcome No Telemetry Bed No attempt made
--- NOTE | 2017-08-03 16:54 | MA ---
cc: SHELTON TELLES M.D. DATE: 08/03/2017 PROCEDURE Left heart catheterization, selective coronary angiography, left ventriculography. PROCEDURE NOTE The patient was brought to the cardiac catheterization laboratory in a fasting state after having signed informed consent. The right radial region was prepped and draped as per policy and anesthetized with 1% lidocaine. Arterial access was obtained via the right radial artery and a 6-Zimbabwean sheath placed. Coronary arteriography was performed using a tiger catheter to engage the right coronary and a Yolis left 3.5 to engage the left main. Left ventriculography was done using a multipurpose catheter. There were no apparent immediate complications. A radial artery compression band was applied to her wrist at the end of the case to achieve good hemostasis. HEMODYNAMIC RESULTS Left ventricle 141 with an end-diastolic pressure of 13. Aorta 140/79 with a mean of 106. There was no significant transvalvular aortic gradient on pullback of the pigtail catheter. CORONARY ARTERIOGRAPHY Left main is normal. The left anterior descending gives rise to a small to medium size diagonal. The LAD is a moderately tortuous. No definite disease is seen in the LAD system. The left circumflex is a relatively large dominant vessel giving rise to a medium-sized obtuse marginal. No definite disease is seen in the left circumflex system. We did have to limit the number of views of the left coronary system as the patient was having considerable spasm around the catheters, causing considerable pain. The right coronary artery is a small nondominant vessel free of disease. LEFT VENTRICULOGRAPHY Contrast injection of the left ventricle reveals no segmental wall motion abnormalities. Ejection fraction is estimated at 60%. CONCLUSION 1. Angiographically normal coronary arteries. 2. Normal left ventricular function with estimated ejection fraction is 65%. MD CANDE Burt/sterling /4:15 PM /4:33 PM MTDSal
--- NOTE | 2017-08-03 17:43 | EKG ---
Date Performed: 08/03/2017 Time Performed: 11:53:56 PTAGE: 42 years EKG: Sinus rhythm NORMAL ECG Since PREVIOUS TRACING , no significant change noted PREVIOUS TRACIN08/03/2017 08.29 DOCTOR: Grace Valverde Interpretating Date/Time 08/03/2017 17:41:30
--- NOTE | 2017-08-03 17:44 | EKG ---
Date Performed: 08/03/2017 Time Performed: 14:32:06 PTAGE: 42 years EKG: Sinus rhythm SEPTAL MYOCARDIAL INFARCTION ABNORMAL ECG Since PREVIOUS TRACING , no significant change noted PREVIOUS TRACIN08/03/2017 11.53 DOCTOR: Grace Valverde Interpretating Date/Time 08/03/2017 17:42:04
[2017-08-03] MEDS ORDERED: IOHEXOL 350 MG/ML 50 ML BTL (for Cath Lab) OTHER ONE (20:59)
[2017-08-03] MEDS ORDERED: SODIUM CHLORIDE 0.9% FLUSH 10 ML FLUSH IV FLUSH SCH (21:00)
[2017-08-04] MEDS ORDERED: LEVOTHYROXINE SODIUM 25 MCG TAB PO SCH (06:00)
[2017-08-04] MEDS ORDERED: PRAVASTATIN SOD 10 MG TAB PO SCH (09:00)
[2017-08-04] MEDS ORDERED: ASPIRIN 325 MG TAB PO SCH (09:00)
== END 2017-08-03 21:00 | disposition home or self-care (01) ==
LOC: NEPE 08:25 → NEDA 09:36 → NEPFCDU 11:26 → HDIC 19:49
PROVIDERS: ADMIT Family Medicine; ATTEND Family Medicine
DX: R07.89 Other chest pain (principal); M79.622 Pain in left upper arm; R00.0 Tachycardia, unspecified; R03.0 Elevated blood-pressure reading, without diagnosis of hypertension; R94.31 Abnormal electrocardiogram [ECG] [EKG]; I20.0 Unstable angina; E78.5 Hyperlipidemia, unspecified; E03.9 Hypothyroidism, unspecified; E05.00 Thyrotoxicosis with diffuse goiter without thyrotoxic crisis or storm; K21.9 Gastro-esophageal reflux disease without esophagitis; F17.210 Nicotine dependence, cigarettes, uncomplicated; Z79.899 Other long term (current) drug therapy; Z79.82 Long term (current) use of aspirin
CPT/HCPCS: 71045; 71046; 80048; 82550; 83735; 84484; 84703; 85025; 85730; 93005; 99285; G0378; J1644; J2250; J3010; 93458; 99152; C1769; C1893; Q9967